=== PATIENT | male | born 1950 | race Caucasian/White ===

== ENCOUNTER 2017-01-31 09:32 | Observation (INO) | payer MEDICARE ==
[~2017-01-31] VITALS: Ht 185.4 cm; Wt 121.6 kg
[2017-01-31] VITALS (9 sets, daily range): BP systolic 130–164; BP diastolic 72–99
[~2017-01-31 09:32] MED LIST: ASPI325T4 PO; FENTANYL PF 100 MCG/2 ML VIAL. IV PRN; HYDROMORPHONE 2 MG/ML VIAL. IV PRN; IV RINGERS,LACTATED 1000ML 1,000 ML IV SCH; LIDOCAINE 1% 1 ML SYRINGE. ID PRN; LISI10TA2 PO; MORPHINE SULFATE 2 MG/ML DISP.SYRIN. IV PRN; ONDANSETRON PF 4 MG/2 ML VIAL. IV PRN; PROCHLORPERAZINE 10 MG/2 ML VIAL. IV PRN; TAMS0.4C97 PO
[2017-01-31] MEDS ORDERED: SEVOFLURANE 31 TO 60 MINUTES. IH ONE (10:29)
[2017-01-31] MEDS ORDERED: FENTANYL PF 100 MCG/2 ML VIAL. ONE (10:29)
[2017-01-31] MEDS ORDERED: PROPOFOL 20 ML IV ONE (10:29)
[2017-01-31] MEDS ORDERED: ONDANSETRON PF 4 MG/2 ML VIAL. ONE (10:29)
[2017-01-31] MEDS ORDERED: DEXAMETHASONE SOD PHOS 20 MG/5 ML VIAL. ONE (10:29)
[2017-01-31] MEDS ORDERED: LIDOCAINE 2% 100 MG/5 ML DISP.SYRIN. ONE (10:29)
[2017-01-31] MEDS ORDERED: PHENYLEPHRINE in 0.9% NACL PF 1 MG/10 ML DISP.SYRIN. IV ONE (11:44)
[2017-01-31] MEDS ORDERED: MAGNESIUM HYDROXIDE 2,400 MG/30 ML ORAL.SUSP. PO PRN (12:30)
[2017-01-31] MEDS ORDERED: MAG HYDROX/ALUMINUM HYD/SIMETH 30 ML ORAL.SUSP PO PRN (12:30)
[2017-01-31] MEDS ORDERED: DIPHENHYDRAMINE HCL 25 MG CAPSULE PO PRN (12:30)
[2017-01-31] MEDS ORDERED: HYDROCODONE/APAP 5/325MG TABLET. PO PRN (12:30)
[2017-01-31] MEDS ORDERED: ONDANSETRON PF 4 MG/2 ML VIAL. IV PRN (12:30)
[2017-01-31] MEDS ORDERED: NALOXONE 0.4 MG/ML VIAL. IV PRN (12:30)
[2017-01-31] MEDS ORDERED: 0.9 % SODIUM CHLORIDE 10 ML DISP.SYRIN. IV PRN (12:30)
[2017-01-31] MEDS ORDERED: ACETAMINOPHEN 325 MG TABLET. PO PRN (12:30)
--- NOTE | 2017-01-31 12:47 | PDOC ---
BRIEF OPERATIVE NOTE Date: Jan 31, 2017 Pre-Op Diagnosis Gross Hematuria, urinary clot retention Post-Op Diagnosis Hemorrhagic prostatitis Procedure Performed Cystoscopy evacuation bladder clots Fuluguration prostate Surgeon Marlen Anesthesia Type: General Specimens Obtained blood clots discarded Findings hemorrhagic prostate, large median lobe bladder full of clots Complications None Additional Remarks tolerated well JEAN-CLAUDE CASH DO Jan 31, 2017 12:47
--- NOTE | 2017-01-31 13:48 | OP ---
DATE OF SURGERY: 01/31/2017 PREOPERATIVE DIAGNOSES: Gross hematuria, urinary clot retention. POSTOPERATIVE DIAGNOSES: Gross hematuria, urinary clot retention, hemorrhagic prostatitis. PROCEDURE: Cystoscopy, evacuation of bladder clots, fulguration of prostate. SURGEON: Jean-Claude Cash D.O. ANESTHESIA: General. INDICATIONS AND JUDGMENT: This is a 66-year-old male who was previously admitted to the hospital with gross hematuria and urinary clot retention. He was catheterized and placed on continuous bladder irrigation. The patient improved, his renal function improved; therefore, he was allowed to go home and brought him back to outpatient surgery today to undergo a cystoscopy evaluation. He continued to have heme colored urine with occasional clots. DESCRIPTION OF PROCEDURE: The patient was preloaded with IV antibiotics. He was taken to the operating room and placed on the operating room table in supine position, given a general anesthetic and then placed in a dorsolithotomy position using Ivncent stirrups since we do not have a cystoscopy table. Rigid cystoscopy was performed with a 21-Serbian cystoscope. The urethra was normal in course and caliber. The prostate was visualized. He has a very large prostate, estimated to be between 40 and 60 grams with visual obstruction. He also has a very large median lobe extending into the bladder, which was hemorrhagic in nature. Scope was advanced into the bladder. The bladder was full of clots. I then removed the cystoscope. A 24-Serbian resectoscope sheath was introduced into the urethra and into the bladder with a Khurram obturator. Following that, the Ellik evacuator was utilized to remove numerous clots from the bladder. Finally, all the clots were removed. I then repeated cystoscopy and examined the bladder with a 30-degree and 70-degree lens. Surprisingly, there was no evidence of bladder tumor. There was no bladder calculi. It was a little difficult to manipulate within the bladder due to this large median lobe that extends into the bladder. The bleeding appeared to be coming from the hemorrhagic blood vessels that were on the surface of this median lobe. The cystoscope was removed. I then replaced the resectoscope sheath into the bladder. An Zappos resectoscope was fitted with a rollerball electrode and I began to cauterize the bleeding vessels on this large median lobe of the prostate, which extended into the bladder. All these bleeding vessels were coagulated. This ____ control all of the bleeding. No other bleeding was identified. Once again, I did not see any sign of a bladder tumor. Once hemostasis was obtained, the resectoscope was then removed. I then placed a 22 Serbian 3-way Olivares catheter into the urethra and into the bladder. The 20 mL balloon was filled and this was irrigated. The return was clear. Therefore, I connected a 3-way Olivares catheter to continuous bladder irrigation using saline. The instruments were removed. The patient tolerated the procedure well. He was sent to recovery room in satisfactory condition. JEAN-CLAUDE CASH DO DR: Abigail JOB#: [id number] / [id number]
[2017-01-31] MEDS ORDERED: LEVOFLOXACIN 500 MG TABLET PO SCH (14:00)
[2017-01-31] MEDS: IV NORMAL SALINE 1000ML BAG 1,000 ML IV SCH ×2 (14:32→23:30)
--- NOTE | 2017-01-31 15:29 | PDOC2 ---
CONSULT Date of Consult Date of Consult DATE: 01/31/17 TIME: 15:23 Reason for Consult Reason for Consult: medical mx Referring Physician Referring Physician: jessica Identification/Chief Complaint Chief Complaint blood in urine, dribbling urine History of Present Illness Reason for Visit: Very pleasant 66 y.o male with HTN but has not been taking for financial reasons (only on 3 meds at home), - lisinopril, ASA 81 and flomax. 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 Pt had bloody urine, went for cysto today with cautery and prostate scrapings etc. Urine is clearing up, pt pleased with his hospital course BP running on high side, 160s systolic - claims that may be his usual, though not ideal at bedside, no labs yet But hemodynamically stable Past Medical History Cardiovascular: HTN Past Surgical History Past Surgical History: Tonsillectomy Family History Family History: No Significant, Hypertension Social History No ALCOHOL: none Drugs: Marijuana Lives: with Family Domestic Violence: Neg Current Problem List Problem List Problems Medical Problems: (1) Hematuria Status: Acute Current Medications Current Medications Current Medications Ondansetron HCl (Zofran) 4 mg PRN Q6HRS PRN IV NAUSEA/VOMITING; Start 01/31/17 at 07:00; Stop 02/01/17 at 06:59 Fentanyl Citrate (Fentanyl 2ml Vial) 25 mcg PRN Q5MIN PRN IV MILD PAIN; Start 01/31/17 at 07:00; Stop 02/01/17 at 06:59 Fentanyl Citrate (Fentanyl 2ml Vial) 50 mcg PRN Q5MIN PRN IV MODERATE PAIN; Start 01/31/17 at 07:00; Stop 02/01/17 at 06:59 Morphine Sulfate 1 mg 1 mg PRN Q10MIN PRN IV SEVERE PAIN; Start 01/31/17 at 07: 00; Stop 02/01/17 at 06:59 Lactated Ringer's (Iv Lactated Ringers) 1,000 ml @ 30 mls/hr Q24H IV ; Start at 07:00; Stop 01/31/17 at 18:59 Lidocaine HCl 2 ml PRN 1X PRN ID PRIOR TO IV START; Start 01/31/17 at 07:00; Stop 02/01/17 at 06:59 Hydromorphone HCl (Dilaudid) 0.5 mg PRN Q10MIN PRN IV SEV PAIN, Second choice; Start 01/31/17 at 07:00; Stop 02/01/17 at 06:59 Prochlorperazine Edisylate 5 mg 5 mg PACU PRN PRN IV NAUSEA, MRX1; Start at 07:00; Stop 02/01/17 at 06:59 Levofloxacin/ Dextrose (LEVAQUIN 500mg PREMIX) 100 ml @ 100 mls/hr 1X PREOP PRN IV PRIOR TO PROCEDURE Last administered on 01/31/17t 11:25; Start 01/31/17 at 06:00; Stop 01/31/17 at 18:00 Fentanyl Citrate (Fentanyl 2ml Vial) 100 mcg STK-MED ONCE .ROUTE ; Start at 10:29; Stop 01/31/17 at 10:30; Status DC Sevoflurane 30 ml 30 ml STK-MED ONCE IH ; Start 01/31/17 at 10:29; Stop at 10:30; Status DC Propofol (Diprivan) 20 ml @ As Directed STK-MED ONCE IV ; Start 01/31/17 at 10: 29; Stop 01/31/17 at 10:30; Status DC Lidocaine HCl 100 mg STK-MED ONCE .ROUTE ; Start 01/31/17 at 10:29; Stop at 10:30; Status DC Ondansetron HCl (Zofran) 4 mg STK-MED ONCE .ROUTE ; Start 01/31/17 at 10:29; Stop 01/31/17 at 10:30; Status DC Dexamethasone Sodium Phosphate (Decadron) 20 mg STK-MED ONCE .ROUTE ; Start at 10:29; Stop 01/31/17 at 10:30; Status DC Phenylephrine HCl 1 mg STK-MED ONCE IV ; Start 01/31/17 at 11:44; Stop 01/31/17 at 11:45; Status DC Al Hydroxide/Mg Hydroxide (Mylanta Plus Xs) 30 ml PRN Q3HRS PRN PO HEARTBURN / GAS; Start 01/31/17 at 12:30 Diphenhydramine HCl (Benadryl) 25 mg PRN Q6HRS PRN PO ITCHING; Start 01/31/17 at 12:30 Naloxone HCl (Narcan) 0.1 mg PRN Q2MIN PRN IV SEE COMMENTS; Start 01/31/17 at 12:30 Sodium Chloride 3 ml 3 ml QSHIFT PRN IV AFTER MEDS AND BLOOD DRAWS; Start 01/31 at 12:30 Sodium Chloride (Iv Sodium Chloride 0.9% 1000ml Bag) 1,000 ml @ 100 mls/hr Q10H IV Last administered on 01/31/17t 14:32; Start 01/31/17 at 13:30 Acetaminophen/ Hydrocodone Bitart (Lortab 5/325) 1 tab PRN Q4HRS PRN PO MILD PAIN; Start 01/31/17 at 12:30 Acetaminophen (Tylenol) 650 mg PRN Q6HRS PRN PO MILD PAIN / TEMP; Start at 12:30 Ondansetron HCl (Zofran) 4 mg PRN Q6HRS PRN IV NAUESA, 1ST CHOICE; Start at 12:30 Senna/Docusate Sodium (Senna Plus) 1 tab BID PO ; Start 01/31/17 at 21:00 Magnesium Hydroxide (Milk Of Magnesia) 2,400 mg PRN Q12HR PRN PO CONSTIPATION; Start 01/31/17 at 12:30 Levofloxacin (Levaquin) 500 mg DAILY06 PO ; Start 01/31/17 at 14:00; Stop at 14:00; Status DC Lisinopril (Prinivil) 10 mg DAILY PO ; Start 02/01/17 at 09:00 Tamsulosin HCl (Flomax) 0.4 mg QHS PO ; Start 01/31/17 at 21:00 Levofloxacin (Levaquin) 500 mg DAILY06 PO ; Start 02/01/17 at 06:00 Labetalol HCl (Normodyne) 10 mg PRN Q2HR PRN IVP HYPERTENSION, SEE COMMENTS; Start 01/31/17 at 15:15 Active Scripts Active Lisinopril 10 Mg Tablet 1 Tab PO DAILY Flomax (Tamsulosin Hcl) 0.4 Mg Cap.er.24h 0.4 Mg PO QHS Reported Aspirin 325 Mg Tablet 1 Tab PO PRN 1X PRN Allergies Allergies: Coded Allergies: Penicillins (Verified Allergy, Intermediate, unknown, 01/31/17) Sulfa (Sulfonamide Antibiotics) (Verified Allergy, Intermediate, Eyes & Chest area problem and hard to breath, 01/31/17) ROS General: No: Appetite, Chills, Fatigue, Malaise, Night Sweats, Other PSYCHOLOGICAL ROS: No: Anxiety, Behavioral Disorder, Concentration difficultie , Decreased libido, Depression, Disorientation, Hallucinations, Hostility, Irritablity, Memory difficulties, Mood Swings, Obsessive thoughts, Other, Physical abuse, Sexual abuse, Sleep disturbances, Suicidal ideation Eyes: No Blurry vision, No Decreased vision, No Double vision, No Dry eyes, No Excessive tearing, No Eye Pain, No Itchy Eyes, No Loss of vision, No Other, No Photophobia, No Scotomata, No Uses contacts, No Uses glasses HEENT: No: Epistaxis, Heacaches, Hearing change, Nasal congestion, Nasal discharge, Oral lesions, Other, Sinus pain, Sneezing, Snoring, Sore Throat, Tinnitus, Vertigo, Visual Changes, Vocal changes ALLERGY AND IMMUNOLOGY: No: Hives, Insect Bite Sensitivity, Itchy/Watery Eyes, Nasal Congestion, Other, Post Nasal Drip, Seasonal Allergies Hematological and Lymphatic: No: Bleeding Problems, Blood Clots, Blood Transfusions, Brusing, Night Sweats, Other, Pallor, Swollen Lymph Nodes ENDOCRINE: No: Breast Changes, Galactorrhea, Hair Pattern Changes, Hot Flashes , Malaise/lethargy, Mood Swings, Other, Palpitations, Polydipsia/polyuria, Skin Changes, Temperature Intolerance, Unexpected Weight Changes Breast: No New/Changing Breast Lumps, No Nipple changes, No Nipple discharge, No Other Respiratory: No: Cough, Hemoptysis, Orthopnea, Other, Pleuritic Pain, SOB with excertion, Shortness of breath, Sputum Changes, Stridor, Tachypnea, Wheezing Cardiovascular: No Chest Pain, No Edema, No Lt Headedness, No Orthopnea, No Other, No Palpitations, No Paroxysmal Noc. Dyspnea Gastrointestinal: No Abdominal Pain, No Constipation, No Diarrhea, No Hematochezia, No Melena, No Nausea, No Other, No Vomiting Genitourinary: YES Hematuria, YES Other (dribbling), YES Retention, YES Urgency Neurological: No Behavorial Changes, No Bowel/Bladder ControlChng, No Confusion , No Dizziness, No Gait Disturbance, No Headaches, No Impaired Coord/balance, No Memory Loss, No Numbness/Tingling, No Other, No Seizures, No Speech Problems , No Tremors, No Visual Changes, No Weakness Skin: No Acne, No Dry Skin, No Eczema, No Hair Changes, No Lumps, No Mole Changes, No Mottling, No Nail Changes, No Other, No Pruritus, No Rash, No Skin Lesion Changes Physical Exam General: Alert, Oriented X3, Cooperative, No acute distress HEENT: Atraumatic, PERRLA, Mucous membr. moist/pink Lungs: Clear to auscultation Heart: Regular rate, Normal S1, Normal S2, No murmurs Abdomen: Normal bowel sounds, Soft, No tenderness, No hepatosplenomegaly, No masses Extremities: No clubbing, No cyanosis, No edema, Normal pulses, No tenderness/ swelling Neuro: Normal gait, Normal speech, Normal tone, Sensation intact, Reflexes 2+ Psych/Mental Status: Mental status NL, Mood NL Vitals VITALS Vital Signs Date Time Temp Pulse Resp B/P Pulse Ox O2 Delivery O2 Flow Rate FiO2 01/31/17 15:02 Room Air 01/31/17 14:54 98.8 89 161/83 98.8 01/31/17 13:45 18 92 01/31/17 11:26 10 Assessment/Plan Assessment/Plan 1. Hemorrhagic prostatitis s/p Cystoscopy evacuation bladder clots and Fuluguration prostate 2. HTN, uncontrolled PLAN: Add labetolol prn REsume Lisinopril HOld ASA cont flomax On bladder irriagtion Dw pt, and RN gregg Thanks for the consult! TUCKER CARIAS MD Jan 31, 2017 15:28
[2017-01-31] MEDS: SENNOSIDES/DOCUSATE 8.6/50MG TABLET. PO SCH (20:37)
[2017-01-31] MEDS: TAMSULOSIN 0.4 MG CAP.ER.24H. PO SCH (20:37)
[2017-02-01] MEDS: LEVOFLOXACIN 500 MG TABLET PO SCH (05:37)
[2017-02-01 06:28] LABS: BASO % 0 % (0-3); EOS % 1 % (0-3); HEMATOCRIT 30.1 % (39.0-53.0); HEMOGLOBIN 9.8 g/dL (13.0-17.5); LYMPH # 2.1 x10^3/uL (1.0-4.8); LYMPH % 20 % (24-48); MEAN CORPUSCULAR HEMOGLOBIN 28 pg (25-35); MEAN CORPUSCULAR HGB CONC 33 g/dL (31-37); MEAN CORPUSCULAR VOLUME 87 fL (79-100); MONO % 7 % (0-9); NEUT % 72 % (31-73); PLATELET COUNT 276 x10^3/uL (140-400); RED BLOOD COUNT 3.47 x10^6/uL (4.30-5.70); WHITE BLOOD COUNT 10.4 x10^3/uL (4.0-11.0)
[2017-02-01 06:43] LABS: GFR 74.5; POTASSIUM 3.2 mmol/L (3.5-5.1)
[2017-02-01 07:00] VITALS: BP 167/77
[2017-02-01] MEDS: IV NORMAL SALINE 1000ML BAG 1,000 ML IV SCH ×3 (08:13→18:12)
--- NOTE | 2017-02-01 08:17 | PDOC ---
Provider Note Provider Note Urology POD#1 Cystoscopy, evacuation bladder clots Fulguration hemorrhagic prostate Urine clear on CBI K+ low Plan: D/C CBI, keep haddad catheter in today, remove tomorrow Rx Flomax and Proscar 5mg daily JEAN-CLAUDE CASH DO Feb 01, 2017 08:17
[2017-02-01] MEDS: SENNOSIDES/DOCUSATE 8.6/50MG TABLET. PO SCH ×2 (08:25→21:36)
[2017-02-01] MEDS: LISINOPRIL 10 MG TABLET PO SCH (08:25)
[2017-02-01 11:00] VITALS: BP 159/77
--- NOTE | 2017-02-01 12:24 | PDOC ---
PROGRESS NOTES Chief Complaint Chief Complaint 1. Hemorrhagic prostatitis s/p Cystoscopy evacuation bladder clots 2. HTN, poor control 3. obesity 4. BPH History of Present Illness History of Present Illness feels better CBI seems to be clearing OOB to chair, eating no complaint Vitals Vitals Vital Signs Date Time Temp Pulse Resp B/P Pulse Ox O2 Delivery O2 Flow Rate FiO2 02/01/17 08:25 80 167/77 02/01/17 07:00 99.1 24 96 Room Air 99.1 01/31/17 11:26 10 Physical Exam General: Alert, Oriented X3, Cooperative, No acute distress Heart: Regular rate, Normal S1, Normal S2, No murmurs Lungs: Clear Abdomen: Normal bowel sounds, Soft, No tenderness, No hepatosplenomegaly, No masses Extremities: No clubbing, No cyanosis, No edema, Normal pulses, No tenderness/ swelling Labs LABS Laboratory Tests Test 02/01/17 05:55 White Blood Count 10.4x10^3/uL (4.0-11.0) Red Blood Count 3.47x10^6/uL (4.30-5.70) Hemoglobin 9.8g/dL (13.0-17.5) Hematocrit 30.1% (39.0-53.0) Mean Corpuscular Volume 87fL (79-100) Mean Corpuscular Hemoglobin 28pg (25-35) Mean Corpuscular Hemoglobin Concent 33g/dL (31-37) Red Cell Distribution Width 14.0% (11.5-14.5) Platelet Count 276x10^3/uL (140-400) Neutrophils (%) (Auto) 72% (31-73) Lymphocytes (%) (Auto) 20% (24-48) Monocytes (%) (Auto) 7% (0-9) Eosinophils (%) (Auto) 1% (0-3) Basophils (%) (Auto) 0% (0-3) Neutrophils # (Auto) 7.5x10^3uL (1.8-7.7) Lymphocytes # (Auto) 2.1x10^3/uL (1.0-4.8) Monocytes # (Auto) 0.7x10^3/uL (0.0-1.1) Eosinophils # (Auto) 0.1x10^3/uL (0.0-0.7) Basophils # (Auto) 0.0x10^3/uL (0.0-0.2) Sodium Level 144mmol/L (136-145) Potassium Level 3.2mmol/L (3.5-5.1) Chloride Level 105mmol/L (98-107) Carbon Dioxide Level 30mmol/L (21-32) Anion Gap 9 (6-14) Blood Urea Nitrogen 10mg/dL (8-26) Creatinine 1.0mg/dL (0.7-1.3) Estimated GFR (Cockcroft-Gault) 74.5 Glucose Level 98mg/dL (70-99) Calcium Level 8.0mg/dL (8.5-10.1) Review of Systems Review of Systems no n.v.d. Assessment and Plan Assessmemt and Plan Problems Medical Problems: (1) Hematuria Status: Acute Problems: Comment Review of Relevant I have reviewed the following items allison (where applicable) has been applied. Labs Laboratory Tests Test 02/01/17 05:55 White Blood Count 10.4x10^3/uL (4.0-11.0) Red Blood Count 3.47x10^6/uL (4.30-5.70) Hemoglobin 9.8g/dL (13.0-17.5) Hematocrit 30.1% (39.0-53.0) Mean Corpuscular Volume 87fL (79-100) Mean Corpuscular Hemoglobin 28pg (25-35) Mean Corpuscular Hemoglobin Concent 33g/dL (31-37) Red Cell Distribution Width 14.0% (11.5-14.5) Platelet Count 276x10^3/uL (140-400) Neutrophils (%) (Auto) 72% (31-73) Lymphocytes (%) (Auto) 20% (24-48) Monocytes (%) (Auto) 7% (0-9) Eosinophils (%) (Auto) 1% (0-3) Basophils (%) (Auto) 0% (0-3) Neutrophils # (Auto) 7.5x10^3uL (1.8-7.7) Lymphocytes # (Auto) 2.1x10^3/uL (1.0-4.8) Monocytes # (Auto) 0.7x10^3/uL (0.0-1.1) Eosinophils # (Auto) 0.1x10^3/uL (0.0-0.7) Basophils # (Auto) 0.0x10^3/uL (0.0-0.2) Sodium Level 144mmol/L (136-145) Potassium Level 3.2mmol/L (3.5-5.1) Chloride Level 105mmol/L (98-107) Carbon Dioxide Level 30mmol/L (21-32) Anion Gap 9 (6-14) Blood Urea Nitrogen 10mg/dL (8-26) Creatinine 1.0mg/dL (0.7-1.3) Estimated GFR (Cockcroft-Gault) 74.5 Glucose Level 98mg/dL (70-99) Calcium Level 8.0mg/dL (8.5-10.1) Laboratory Tests Test 02/01/17 05:55 White Blood Count 10.4x10^3/uL (4.0-11.0) Red Blood Count 3.47x10^6/uL (4.30-5.70) Hemoglobin 9.8g/dL (13.0-17.5) Hematocrit 30.1% (39.0-53.0) Mean Corpuscular Volume 87fL (79-100) Mean Corpuscular Hemoglobin 28pg (25-35) Mean Corpuscular Hemoglobin Concent 33g/dL (31-37) Red Cell Distribution Width 14.0% (11.5-14.5) Platelet Count 276x10^3/uL (140-400) Neutrophils (%) (Auto) 72% (31-73) Lymphocytes (%) (Auto) 20% (24-48) Monocytes (%) (Auto) 7% (0-9) Eosinophils (%) (Auto) 1% (0-3) Basophils (%) (Auto) 0% (0-3) Neutrophils # (Auto) 7.5x10^3uL (1.8-7.7) Lymphocytes # (Auto) 2.1x10^3/uL (1.0-4.8) Monocytes # (Auto) 0.7x10^3/uL (0.0-1.1) Eosinophils # (Auto) 0.1x10^3/uL (0.0-0.7) Basophils # (Auto) 0.0x10^3/uL (0.0-0.2) Sodium Level 144mmol/L (136-145) Potassium Level 3.2mmol/L (3.5-5.1) Chloride Level 105mmol/L (98-107) Carbon Dioxide Level 30mmol/L (21-32) Anion Gap 9 (6-14) Blood Urea Nitrogen 10mg/dL (8-26) Creatinine 1.0mg/dL (0.7-1.3) Estimated GFR (Cockcroft-Gault) 74.5 Glucose Level 98mg/dL (70-99) Calcium Level 8.0mg/dL (8.5-10.1) Medications Current Medications Ondansetron HCl (Zofran) 4 mg PRN Q6HRS PRN IV NAUSEA/VOMITING; Start 01/31/17 at 07:00; Stop 02/01/17 at 06:59; Status DC Fentanyl Citrate (Fentanyl 2ml Vial) 25 mcg PRN Q5MIN PRN IV MILD PAIN; Start 01/31/17 at 07:00; Stop 02/01/17 at 06:59; Status DC Fentanyl Citrate (Fentanyl 2ml Vial) 50 mcg PRN Q5MIN PRN IV MODERATE PAIN; Start 01/31/17 at 07:00; Stop 02/01/17 at 06:59; Status DC Morphine Sulfate 1 mg 1 mg PRN Q10MIN PRN IV SEVERE PAIN; Start 01/31/17 at 07: 00; Stop 02/01/17 at 06:59; Status DC Lactated Ringer's (Iv Lactated Ringers) 1,000 ml @ 30 mls/hr Q24H IV ; Start at 07:00; Stop 01/31/17 at 18:59; Status DC Lidocaine HCl 2 ml PRN 1X PRN ID PRIOR TO IV START; Start 01/31/17 at 07:00; Stop 02/01/17 at 06:59; Status DC Hydromorphone HCl (Dilaudid) 0.5 mg PRN Q10MIN PRN IV SEV PAIN, Second choice; Start 01/31/17 at 07:00; Stop 02/01/17 at 06:59; Status DC Prochlorperazine Edisylate 5 mg 5 mg PACU PRN PRN IV NAUSEA, MRX1; Start at 07:00; Stop 02/01/17 at 06:59; Status DC Levofloxacin/ Dextrose (LEVAQUIN 500mg PREMIX) 100 ml @ 100 mls/hr 1X PREOP PRN IV PRIOR TO PROCEDURE Last administered on 01/31/17t 11:25; Start 01/31/17 at 06:00; Stop 01/31/17 at 18:00; Status DC Fentanyl Citrate (Fentanyl 2ml Vial) 100 mcg STK-MED ONCE .ROUTE ; Start at 10:29; Stop 01/31/17 at 10:30; Status DC Sevoflurane 30 ml 30 ml STK-MED ONCE IH ; Start 01/31/17 at 10:29; Stop at 10:30; Status DC Propofol (Diprivan) 20 ml @ As Directed STK-MED ONCE IV ; Start 01/31/17 at 10: 29; Stop 01/31/17 at 10:30; Status DC Lidocaine HCl 100 mg STK-MED ONCE .ROUTE ; Start 01/31/17 at 10:29; Stop at 10:30; Status DC Ondansetron HCl (Zofran) 4 mg STK-MED ONCE .ROUTE ; Start 01/31/17 at 10:29; Stop 01/31/17 at 10:30; Status DC Dexamethasone Sodium Phosphate (Decadron) 20 mg STK-MED ONCE .ROUTE ; Start at 10:29; Stop 01/31/17 at 10:30; Status DC Phenylephrine HCl 1 mg STK-MED ONCE IV ; Start 01/31/17 at 11:44; Stop 01/31/17 at 11:45; Status DC Al Hydroxide/Mg Hydroxide (Mylanta Plus Xs) 30 ml PRN Q3HRS PRN PO HEARTBURN / GAS; Start 01/31/17 at 12:30 Diphenhydramine HCl (Benadryl) 25 mg PRN Q6HRS PRN PO ITCHING; Start 01/31/17 at 12:30 Naloxone HCl (Narcan) 0.1 mg PRN Q2MIN PRN IV SEE COMMENTS; Start 01/31/17 at 12:30 Sodium Chloride 3 ml 3 ml QSHIFT PRN IV AFTER MEDS AND BLOOD DRAWS; Start 01/31 at 12:30 Sodium Chloride (Iv Sodium Chloride 0.9% 1000ml Bag) 1,000 ml @ 100 mls/hr Q10H IV Last administered on 02/01/17 08:13; Start 01/31/17 at 13:30 Acetaminophen/ Hydrocodone Bitart (Lortab 5/325) 1 tab PRN Q4HRS PRN PO MILD PAIN; Start 01/31/17 at 12:30 Acetaminophen (Tylenol) 650 mg PRN Q6HRS PRN PO MILD PAIN / TEMP; Start at 12:30 Ondansetron HCl (Zofran) 4 mg PRN Q6HRS PRN IV NAUESA, 1ST CHOICE; Start at 12:30 Senna/Docusate Sodium (Senna Plus) 1 tab BID PO Last administered on 02/01/17 08:25; Start 01/31/17 at 21:00 Magnesium Hydroxide (Milk Of Magnesia) 2,400 mg PRN Q12HR PRN PO CONSTIPATION; Start 01/31/17 at 12:30 Levofloxacin (Levaquin) 500 mg DAILY06 PO ; Start 01/31/17 at 14:00; Stop at 14:00; Status DC Lisinopril (Prinivil) 10 mg DAILY PO Last administered on 02/01/17 08:25; Start 02/01/17 at 09:00 Tamsulosin HCl (Flomax) 0.4 mg QHS PO Last administered on 01/31/17 20:37; Start 01/31/17 at 21:00 Levofloxacin (Levaquin) 500 mg DAILY06 PO Last administered on 02/01/17 05:37 ; Start 02/01/17 at 06:00 Labetalol HCl (Normodyne) 10 mg PRN Q2HR PRN IVP HYPERTENSION, SEE COMMENTS; Start 01/31/17 at 15:15 Active Scripts Active Lisinopril 10 Mg Tablet 1 Tab PO DAILY Flomax (Tamsulosin Hcl) 0.4 Mg Cap.er.24h 0.4 Mg PO QHS Reported Aspirin 325 Mg Tablet 1 Tab PO PRN 1X PRN Vitals/I & O Vital Sign - Last 24 Hours 01/31/17 01/31/17 01/31/17 01/31/17 12:41 12:56 13:11 13:45 Temp 97.6 98.8 97.6 98.8 Pulse 82 94 92 89 Resp 18 14 14 18 B/P 134/68 153/80 149/74 161/83 Pulse Ox 98 95 97 92 O2 Delivery Room Air Room Air Room Air Room Air 01/31/17 01/31/17 01/31/17 01/31/17 14:00 14:15 14:45 14:54 Temp 98.8 98.8 Pulse 91 100 101 89 B/P 156/74 164/78 130/99 161/83 O2 Delivery Room Air 01/31/17 01/31/17 01/31/17 01/31/17 15:02 15:15 15:45 19:00 Temp 98.2 98.2 Pulse 97 90 86 Resp 20 B/P 150/74 148/72 145/80 Pulse Ox 97 O2 Delivery Room Air Room Air 01/31/17 01/31/17 02/01/17 02/01/17 20:00 23:00 07:00 08:25 Temp 98.1 99.1 98.1 99.1 Pulse 96 80 80 Resp 20 24 B/P 154/74 167/77 167/77 Pulse Ox 95 96 O2 Delivery Room Air Room Air Room Air Intake and Output 01/31/17 01/31/17 02/01/17 14:59 22:59 06:59 Intake Total 1500 ml 5475 ml Output Total 5100 ml 9800 ml 9650 ml Balance -3600 ml -9800 ml -4175 ml ESTELA VELARDE MD Feb 01, 2017 12:24
[2017-02-01 15:00] VITALS: BP 170/74
[2017-02-01 19:00] VITALS: BP 183/84
[2017-02-01] MEDS: TAMSULOSIN 0.4 MG CAP.ER.24H. PO SCH (21:36)
[2017-02-01 22:36] VITALS: BP 175/92
[2017-02-02 03:01] VITALS: BP 173/85
[2017-02-02] MEDS: LABETALOL 20 MG/4 ML DISP.SYRIN. IVP PRN ×2 (03:21→20:17)
[2017-02-02] MEDS: IV NORMAL SALINE 1000ML BAG 1,000 ML IV SCH ×2 (04:30→14:30)
[2017-02-02] MEDS: LEVOFLOXACIN 500 MG TABLET PO SCH (06:07)
[2017-02-02 07:00] VITALS: BP_SYST 138; BP_SYST 160; BP_DIAS 113; BP_DIAS 57
[2017-02-02] MEDS: SENNOSIDES/DOCUSATE 8.6/50MG TABLET. PO SCH ×2 (09:53→20:17)
[2017-02-02] MEDS: LISINOPRIL 10 MG TABLET PO SCH (09:54)
[2017-02-02 11:00] VITALS: BP 188/92
--- NOTE | 2017-02-02 12:16 | PDOC ---
PROGRESS NOTES Chief Complaint Chief Complaint 1. Hemorrhagic prostatitis s/p Cystoscopy evacuation bladder clots 2. HTN, poor control 3. obesity 4. BPH History of Present Illness History of Present Illness feels well still eating OK, large BM yesterday no complaint Vitals Vitals Vital Signs Date Time Temp Pulse Resp B/P Pulse Ox O2 Delivery O2 Flow Rate FiO2 02/02/17 11:00 98.4 87 16 188/92 95 Room Air 98.4 Physical Exam General: Alert, Oriented X3, Cooperative, No acute distress Heart: Regular rate, Normal S1, Normal S2, No murmurs Lungs: Clear Abdomen: Normal bowel sounds, Soft, No tenderness, No hepatosplenomegaly, No masses Extremities: No clubbing, No cyanosis, No edema, Normal pulses, No tenderness/ swelling Review of Systems Review of Systems no new complaint on CBI, a little more blood in the bag today, no n.v or d Assessment and Plan Assessmemt and Plan Problems Medical Problems: (1) Hematuria Status: Acute Problems: Comment Review of Relevant I have reviewed the following items allison (where applicable) has been applied. Labs Laboratory Tests Test 02/01/17 05:55 White Blood Count 10.4x10^3/uL (4.0-11.0) Red Blood Count 3.47x10^6/uL (4.30-5.70) Hemoglobin 9.8g/dL (13.0-17.5) Hematocrit 30.1% (39.0-53.0) Mean Corpuscular Volume 87fL (79-100) Mean Corpuscular Hemoglobin 28pg (25-35) Mean Corpuscular Hemoglobin Concent 33g/dL (31-37) Red Cell Distribution Width 14.0% (11.5-14.5) Platelet Count 276x10^3/uL (140-400) Neutrophils (%) (Auto) 72% (31-73) Lymphocytes (%) (Auto) 20% (24-48) Monocytes (%) (Auto) 7% (0-9) Eosinophils (%) (Auto) 1% (0-3) Basophils (%) (Auto) 0% (0-3) Neutrophils # (Auto) 7.5x10^3uL (1.8-7.7) Lymphocytes # (Auto) 2.1x10^3/uL (1.0-4.8) Monocytes # (Auto) 0.7x10^3/uL (0.0-1.1) Eosinophils # (Auto) 0.1x10^3/uL (0.0-0.7) Basophils # (Auto) 0.0x10^3/uL (0.0-0.2) Sodium Level 144mmol/L (136-145) Potassium Level 3.2mmol/L (3.5-5.1) Chloride Level 105mmol/L (98-107) Carbon Dioxide Level 30mmol/L (21-32) Anion Gap 9 (6-14) Blood Urea Nitrogen 10mg/dL (8-26) Creatinine 1.0mg/dL (0.7-1.3) Estimated GFR (Cockcroft-Gault) 74.5 Glucose Level 98mg/dL (70-99) Calcium Level 8.0mg/dL (8.5-10.1) Medications Current Medications Ondansetron HCl (Zofran) 4 mg PRN Q6HRS PRN IV NAUSEA/VOMITING; Start 01/31/17 at 07:00; Stop 02/01/17 at 06:59; Status DC Fentanyl Citrate (Fentanyl 2ml Vial) 25 mcg PRN Q5MIN PRN IV MILD PAIN; Start 01/31/17 at 07:00; Stop 02/01/17 at 06:59; Status DC Fentanyl Citrate (Fentanyl 2ml Vial) 50 mcg PRN Q5MIN PRN IV MODERATE PAIN; Start 01/31/17 at 07:00; Stop 02/01/17 at 06:59; Status DC Morphine Sulfate 1 mg 1 mg PRN Q10MIN PRN IV SEVERE PAIN; Start 01/31/17 at 07: 00; Stop 02/01/17 at 06:59; Status DC Lactated Ringer's (Iv Lactated Ringers) 1,000 ml @ 30 mls/hr Q24H IV ; Start at 07:00; Stop 01/31/17 at 18:59; Status DC Lidocaine HCl 2 ml PRN 1X PRN ID PRIOR TO IV START; Start 01/31/17 at 07:00; Stop 02/01/17 at 06:59; Status DC Hydromorphone HCl (Dilaudid) 0.5 mg PRN Q10MIN PRN IV SEV PAIN, Second choice; Start 01/31/17 at 07:00; Stop 02/01/17 at 06:59; Status DC Prochlorperazine Edisylate 5 mg 5 mg PACU PRN PRN IV NAUSEA, MRX1; Start at 07:00; Stop 02/01/17 at 06:59; Status DC Levofloxacin/ Dextrose (LEVAQUIN 500mg PREMIX) 100 ml @ 100 mls/hr 1X PREOP PRN IV PRIOR TO PROCEDURE Last administered on 01/31/17t 11:25; Start 01/31/17 at 06:00; Stop 01/31/17 at 18:00; Status DC Fentanyl Citrate (Fentanyl 2ml Vial) 100 mcg STK-MED ONCE .ROUTE ; Start at 10:29; Stop 01/31/17 at 10:30; Status DC Sevoflurane 30 ml 30 ml STK-MED ONCE IH ; Start 01/31/17 at 10:29; Stop at 10:30; Status DC Propofol (Diprivan) 20 ml @ As Directed STK-MED ONCE IV ; Start 01/31/17 at 10: 29; Stop 01/31/17 at 10:30; Status DC Lidocaine HCl 100 mg STK-MED ONCE .ROUTE ; Start 01/31/17 at 10:29; Stop at 10:30; Status DC Ondansetron HCl (Zofran) 4 mg STK-MED ONCE .ROUTE ; Start 01/31/17 at 10:29; Stop 01/31/17 at 10:30; Status DC Dexamethasone Sodium Phosphate (Decadron) 20 mg STK-MED ONCE .ROUTE ; Start at 10:29; Stop 01/31/17 at 10:30; Status DC Phenylephrine HCl 1 mg STK-MED ONCE IV ; Start 01/31/17 at 11:44; Stop 01/31/17 at 11:45; Status DC Al Hydroxide/Mg Hydroxide (Mylanta Plus Xs) 30 ml PRN Q3HRS PRN PO HEARTBURN / GAS; Start 01/31/17 at 12:30 Diphenhydramine HCl (Benadryl) 25 mg PRN Q6HRS PRN PO ITCHING; Start 01/31/17 at 12:30 Naloxone HCl (Narcan) 0.1 mg PRN Q2MIN PRN IV SEE COMMENTS; Start 01/31/17 at 12:30 Sodium Chloride 3 ml 3 ml QSHIFT PRN IV AFTER MEDS AND BLOOD DRAWS; Start 01/31 at 12:30 Sodium Chloride (Iv Sodium Chloride 0.9% 1000ml Bag) 1,000 ml @ 100 mls/hr Q10H IV Last administered on 02/02/17 04:30; Start 01/31/17 at 13:30 Acetaminophen/ Hydrocodone Bitart (Lortab 5/325) 1 tab PRN Q4HRS PRN PO MILD PAIN; Start 01/31/17 at 12:30 Acetaminophen (Tylenol) 650 mg PRN Q6HRS PRN PO MILD PAIN / TEMP; Start at 12:30 Ondansetron HCl (Zofran) 4 mg PRN Q6HRS PRN IV NAUESA, 1ST CHOICE; Start at 12:30 Senna/Docusate Sodium (Senna Plus) 1 tab BID PO Last administered on 02/02/17 09:53; Start 01/31/17 at 21:00 Magnesium Hydroxide (Milk Of Magnesia) 2,400 mg PRN Q12HR PRN PO CONSTIPATION; Start 01/31/17 at 12:30 Levofloxacin (Levaquin) 500 mg DAILY06 PO ; Start 01/31/17 at 14:00; Stop at 14:00; Status DC Lisinopril (Prinivil) 10 mg DAILY PO Last administered on 02/02/17 09:54; Start 02/01/17 at 09:00 Tamsulosin HCl (Flomax) 0.4 mg QHS PO Last administered on 02/01/17 21:36; Start 01/31/17 at 21:00 Levofloxacin (Levaquin) 500 mg DAILY06 PO Last administered on 02/02/17 06:07 ; Start 02/01/17 at 06:00 Labetalol HCl (Normodyne) 10 mg PRN Q2HR PRN IVP HYPERTENSION, SEE COMMENTS Last administered on 02/02/17 03:21; Start 01/31/17 at 15:15 Active Scripts Active Lisinopril 10 Mg Tablet 1 Tab PO DAILY Flomax (Tamsulosin Hcl) 0.4 Mg Cap.er.24h 0.4 Mg PO QHS Reported Aspirin 325 Mg Tablet 1 Tab PO PRN 1X PRN Vitals/I & O Vital Sign - Last 24 Hours 02/01/17 02/01/17 02/01/17 02/02/17 15:00 19:00 22:36 03:01 Temp 98.4 98.3 97.9 98.3 98.4 98.3 97.9 98.3 Pulse 97 97 98 86 Resp 18 B/P 170/74 183/84 175/92 173/85 Pulse Ox 94 97 95 93 O2 Delivery Nasal Cannula Room Air Room Air Room Air 02/02/17 02/02/17 02/02/17 02/02/17 03:21 07:00 07:59 09:54 Temp 98.1 98.1 Pulse 86 77 77 Resp 16 B/P 173/85 160/113 160/113 Pulse Ox 98 O2 Delivery Room Air 02/02/17 11:00 Temp 98.4 98.4 Pulse 87 Resp 16 B/P 188/92 Pulse Ox 95 O2 Delivery Room Air Intake and Output 02/01/17 02/01/17 02/02/17 15:00 23:00 07:00 Intake Total 560 ml 1350 ml 5300 ml Output Total 04492 ml 9000 ml Balance 560 ml -60186 ml -3700 ml ESTELA VELARDE MD Feb 02, 2017 12:16
[2017-02-02] MEDS: AMLODIPINE BESYLATE 2.5 MG TABLET. PO SCH (12:52)
[2017-02-02] MEDS ORDERED: POTASSIUM CHLORIDE 20 MEQ TABLET.ER. PO ONE (13:00)
--- NOTE | 2017-02-02 14:53 | PDOC ---
Provider Note Provider Note Urine color improved Plan: -d/c haddad catheter in AM -home on Cipro, Flomax, and Proscar -f/u with family doctor. JEAN-CLAUDE CASH DO Feb 02, 2017 14:52
[2017-02-02 15:00] VITALS: BP 180/80
[2017-02-02 19:00] VITALS: BP 178/73
[2017-02-02] MEDS: TAMSULOSIN 0.4 MG CAP.ER.24H. PO SCH (20:16)
[2017-02-02 23:00] VITALS: BP 167/83
[2017-02-03] MEDS: IV NORMAL SALINE 1000ML BAG 1,000 ML IV SCH (00:19)
[2017-02-03 03:00] VITALS: BP 160/89
[2017-02-03 04:51] LABS: BASO % 1 % (0-3); EOS % 3 % (0-3); HEMATOCRIT 31.1 % (39.0-53.0); HEMOGLOBIN 10.4 g/dL (13.0-17.5); LYMPH # 1.5 x10^3/uL (1.0-4.8); LYMPH % 21 % (24-48); MEAN CORPUSCULAR HEMOGLOBIN 29 pg (25-35); MEAN CORPUSCULAR HGB CONC 34 g/dL (31-37); MEAN CORPUSCULAR VOLUME 86 fL (79-100); MONO % 6 % (0-9); NEUT % 70 % (31-73); PLATELET COUNT 280 x10^3/uL (140-400); RED BLOOD COUNT 3.61 x10^6/uL (4.30-5.70); RED CELL DISTRIBUTION WIDTH 14.7 % (11.5-14.5); WHITE BLOOD COUNT 7.3 x10^3/uL (4.0-11.0)
[2017-02-03 05:20] LABS: ALBUMIN 2.5 g/dL (3.4-5.0); ALBUMIN/GLOBULIN RATIO 0.7 (1.0-1.7); CALCIUM 8.3 mg/dL (8.5-10.1); GFR 74.5; POTASSIUM 3.2 mmol/L (3.5-5.1); TOTAL BILIRUBIN 0.3 mg/dL (0.2-1.0); TOTAL PROTEIN 5.9 g/dL (6.4-8.2)
[2017-02-03] MEDS: LEVOFLOXACIN 500 MG TABLET PO SCH (06:24)
[2017-02-03 07:00] VITALS: BP 135/86
[2017-02-03] MEDS: LISINOPRIL 10 MG TABLET PO SCH (08:19)
[2017-02-03] MEDS: SENNOSIDES/DOCUSATE 8.6/50MG TABLET. PO SCH (08:20)
[2017-02-03] MEDS: AMLODIPINE BESYLATE 2.5 MG TABLET. PO SCH (08:20)
[2017-02-03 11:39] VITALS: BP 135/86
[2017-02-03] MEDS ORDERED: POTASSIUM CHLORIDE 20 MEQ TABLET.ER. PO ONE (13:15)
[2017-02-03] MEDS ORDERED: AMLO2.5T PO (13:20)
[2017-02-03] MEDS ORDERED: FINA5TAB PO (13:20)
[2017-02-03] MEDS ORDERED: CIPR500T94 PO (13:20)
--- NOTE | 2017-02-03 13:22 | PDOC ---
PROGRESS NOTES Chief Complaint Chief Complaint 1. Hemorrhagic prostatitis s/p Cystoscopy evacuation bladder clots 2. HTN, poor control 3. obesity 4. BPH 5. hypokalemia, History of Present Illness History of Present Illness feels well still try to DC if able to void haddad out cipro, proscar and flomax for DC hypokalemia, 40 PO x2 milk of mag, mild constipation Vitals Vitals Vital Signs Date Time Temp Pulse Resp B/P Pulse Ox O2 Delivery O2 Flow Rate FiO2 02/03/17 11:39 97.8 86 20 135/86 97 97.8 02/03/17 03:00 Room Air Physical Exam General: Alert, Oriented X3, Cooperative, No acute distress Heart: Regular rate, Normal S1, Normal S2, No murmurs Lungs: Clear Abdomen: Normal bowel sounds, Soft, No tenderness, No hepatosplenomegaly, No masses Extremities: No clubbing, No cyanosis, No edema, Normal pulses, No tenderness/ swelling Labs LABS Laboratory Tests Test 02/03/17 03:25 White Blood Count 7.3x10^3/uL (4.0-11.0) Red Blood Count 3.61x10^6/uL (4.30-5.70) Hemoglobin 10.4g/dL (13.0-17.5) Hematocrit 31.1% (39.0-53.0) Mean Corpuscular Volume 86fL (79-100) Mean Corpuscular Hemoglobin 29pg (25-35) Mean Corpuscular Hemoglobin Concent 34g/dL (31-37) Red Cell Distribution Width 14.7% (11.5-14.5) Platelet Count 280x10^3/uL (140-400) Neutrophils (%) (Auto) 70% (31-73) Lymphocytes (%) (Auto) 21% (24-48) Monocytes (%) (Auto) 6% (0-9) Eosinophils (%) (Auto) 3% (0-3) Basophils (%) (Auto) 1% (0-3) Neutrophils # (Auto) 5.1x10^3uL (1.8-7.7) Lymphocytes # (Auto) 1.5x10^3/uL (1.0-4.8) Monocytes # (Auto) 0.4x10^3/uL (0.0-1.1) Eosinophils # (Auto) 0.2x10^3/uL (0.0-0.7) Basophils # (Auto) 0.0x10^3/uL (0.0-0.2) Sodium Level 145mmol/L (136-145) Potassium Level 3.2mmol/L (3.5-5.1) Chloride Level 107mmol/L (98-107) Carbon Dioxide Level 29mmol/L (21-32) Anion Gap 9 (6-14) Blood Urea Nitrogen 9mg/dL (8-26) Creatinine 1.0mg/dL (0.7-1.3) Estimated GFR (Cockcroft-Gault) 74.5 BUN/Creatinine Ratio 9 (6-20) Glucose Level 102mg/dL (70-99) Calcium Level 8.3mg/dL (8.5-10.1) Total Bilirubin 0.3mg/dL (0.2-1.0) Aspartate Amino Transf (AST/SGOT) 24U/L (15-37) Alanine Aminotransferase (ALT/SGPT) 59U/L (16-63) Alkaline Phosphatase 68U/L (46-116) Total Protein 5.9g/dL (6.4-8.2) Albumin 2.5g/dL (3.4-5.0) Albumin/Globulin Ratio 0.7 (1.0-1.7) Assessment and Plan Assessmemt and Plan Problems Medical Problems: (1) Hematuria Status: Acute Problems: Comment Review of Relevant I have reviewed the following items allison (where applicable) has been applied. Labs Laboratory Tests Test 02/03/17 03:25 White Blood Count 7.3x10^3/uL (4.0-11.0) Red Blood Count 3.61x10^6/uL (4.30-5.70) Hemoglobin 10.4g/dL (13.0-17.5) Hematocrit 31.1% (39.0-53.0) Mean Corpuscular Volume 86fL (79-100) Mean Corpuscular Hemoglobin 29pg (25-35) Mean Corpuscular Hemoglobin Concent 34g/dL (31-37) Red Cell Distribution Width 14.7% (11.5-14.5) Platelet Count 280x10^3/uL (140-400) Neutrophils (%) (Auto) 70% (31-73) Lymphocytes (%) (Auto) 21% (24-48) Monocytes (%) (Auto) 6% (0-9) Eosinophils (%) (Auto) 3% (0-3) Basophils (%) (Auto) 1% (0-3) Neutrophils # (Auto) 5.1x10^3uL (1.8-7.7) Lymphocytes # (Auto) 1.5x10^3/uL (1.0-4.8) Monocytes # (Auto) 0.4x10^3/uL (0.0-1.1) Eosinophils # (Auto) 0.2x10^3/uL (0.0-0.7) Basophils # (Auto) 0.0x10^3/uL (0.0-0.2) Sodium Level 145mmol/L (136-145) Potassium Level 3.2mmol/L (3.5-5.1) Chloride Level 107mmol/L (98-107) Carbon Dioxide Level 29mmol/L (21-32) Anion Gap 9 (6-14) Blood Urea Nitrogen 9mg/dL (8-26) Creatinine 1.0mg/dL (0.7-1.3) Estimated GFR (Cockcroft-Gault) 74.5 BUN/Creatinine Ratio 9 (6-20) Glucose Level 102mg/dL (70-99) Calcium Level 8.3mg/dL (8.5-10.1) Total Bilirubin 0.3mg/dL (0.2-1.0) Aspartate Amino Transf (AST/SGOT) 24U/L (15-37) Alanine Aminotransferase (ALT/SGPT) 59U/L (16-63) Alkaline Phosphatase 68U/L (46-116) Total Protein 5.9g/dL (6.4-8.2) Albumin 2.5g/dL (3.4-5.0) Albumin/Globulin Ratio 0.7 (1.0-1.7) Laboratory Tests Test 02/03/17 03:25 White Blood Count 7.3x10^3/uL (4.0-11.0) Red Blood Count 3.61x10^6/uL (4.30-5.70) Hemoglobin 10.4g/dL (13.0-17.5) Hematocrit 31.1% (39.0-53.0) Mean Corpuscular Volume 86fL (79-100) Mean Corpuscular Hemoglobin 29pg (25-35) Mean Corpuscular Hemoglobin Concent 34g/dL (31-37) Red Cell Distribution Width 14.7% (11.5-14.5) Platelet Count 280x10^3/uL (140-400) Neutrophils (%) (Auto) 70% (31-73) Lymphocytes (%) (Auto) 21% (24-48) Monocytes (%) (Auto) 6% (0-9) Eosinophils (%) (Auto) 3% (0-3) Basophils (%) (Auto) 1% (0-3) Neutrophils # (Auto) 5.1x10^3uL (1.8-7.7) Lymphocytes # (Auto) 1.5x10^3/uL (1.0-4.8) Monocytes # (Auto) 0.4x10^3/uL (0.0-1.1) Eosinophils # (Auto) 0.2x10^3/uL (0.0-0.7) Basophils # (Auto) 0.0x10^3/uL (0.0-0.2) Sodium Level 145mmol/L (136-145) Potassium Level 3.2mmol/L (3.5-5.1) Chloride Level 107mmol/L (98-107) Carbon Dioxide Level 29mmol/L (21-32) Anion Gap 9 (6-14) Blood Urea Nitrogen 9mg/dL (8-26) Creatinine 1.0mg/dL (0.7-1.3) Estimated GFR (Cockcroft-Gault) 74.5 BUN/Creatinine Ratio 9 (6-20) Glucose Level 102mg/dL (70-99) Calcium Level 8.3mg/dL (8.5-10.1) Total Bilirubin 0.3mg/dL (0.2-1.0) Aspartate Amino Transf (AST/SGOT) 24U/L (15-37) Alanine Aminotransferase (ALT/SGPT) 59U/L (16-63) Alkaline Phosphatase 68U/L (46-116) Total Protein 5.9g/dL (6.4-8.2) Albumin 2.5g/dL (3.4-5.0) Albumin/Globulin Ratio 0.7 (1.0-1.7) Medications Current Medications Ondansetron HCl (Zofran) 4 mg PRN Q6HRS PRN IV NAUSEA/VOMITING; Start 01/31/17 at 07:00; Stop 02/01/17 at 06:59; Status DC Fentanyl Citrate (Fentanyl 2ml Vial) 25 mcg PRN Q5MIN PRN IV MILD PAIN; Start 01/31/17 at 07:00; Stop 02/01/17 at 06:59; Status DC Fentanyl Citrate (Fentanyl 2ml Vial) 50 mcg PRN Q5MIN PRN IV MODERATE PAIN; Start 01/31/17 at 07:00; Stop 02/01/17 at 06:59; Status DC Morphine Sulfate 1 mg 1 mg PRN Q10MIN PRN IV SEVERE PAIN; Start 01/31/17 at 07: 00; Stop 02/01/17 at 06:59; Status DC Lactated Ringer's (Iv Lactated Ringers) 1,000 ml @ 30 mls/hr Q24H IV ; Start at 07:00; Stop 01/31/17 at 18:59; Status DC Lidocaine HCl 2 ml PRN 1X PRN ID PRIOR TO IV START; Start 01/31/17 at 07:00; Stop 02/01/17 at 06:59; Status DC Hydromorphone HCl (Dilaudid) 0.5 mg PRN Q10MIN PRN IV SEV PAIN, Second choice; Start 01/31/17 at 07:00; Stop 02/01/17 at 06:59; Status DC Prochlorperazine Edisylate 5 mg 5 mg PACU PRN PRN IV NAUSEA, MRX1; Start at 07:00; Stop 02/01/17 at 06:59; Status DC Levofloxacin/ Dextrose (LEVAQUIN 500mg PREMIX) 100 ml @ 100 mls/hr 1X PREOP PRN IV PRIOR TO PROCEDURE Last administered on 01/31/17t 11:25; Start 01/31/17 at 06:00; Stop 01/31/17 at 18:00; Status DC Fentanyl Citrate (Fentanyl 2ml Vial) 100 mcg STK-MED ONCE .ROUTE ; Start at 10:29; Stop 01/31/17 at 10:30; Status DC Sevoflurane 30 ml 30 ml STK-MED ONCE IH ; Start 01/31/17 at 10:29; Stop at 10:30; Status DC Propofol (Diprivan) 20 ml @ As Directed STK-MED ONCE IV ; Start 01/31/17 at 10: 29; Stop 01/31/17 at 10:30; Status DC Lidocaine HCl 100 mg STK-MED ONCE .ROUTE ; Start 01/31/17 at 10:29; Stop at 10:30; Status DC Ondansetron HCl (Zofran) 4 mg STK-MED ONCE .ROUTE ; Start 01/31/17 at 10:29; Stop 01/31/17 at 10:30; Status DC Dexamethasone Sodium Phosphate (Decadron) 20 mg STK-MED ONCE .ROUTE ; Start at 10:29; Stop 01/31/17 at 10:30; Status DC Phenylephrine HCl 1 mg STK-MED ONCE IV ; Start 01/31/17 at 11:44; Stop 01/31/17 at 11:45; Status DC Al Hydroxide/Mg Hydroxide (Mylanta Plus Xs) 30 ml PRN Q3HRS PRN PO HEARTBURN / GAS; Start 01/31/17 at 12:30 Diphenhydramine HCl (Benadryl) 25 mg PRN Q6HRS PRN PO ITCHING; Start 01/31/17 at 12:30 Naloxone HCl (Narcan) 0.1 mg PRN Q2MIN PRN IV SEE COMMENTS; Start 01/31/17 at 12:30 Sodium Chloride 3 ml 3 ml QSHIFT PRN IV AFTER MEDS AND BLOOD DRAWS; Start 01/31 at 12:30 Sodium Chloride (Iv Sodium Chloride 0.9% 1000ml Bag) 1,000 ml @ 100 mls/hr Q10H IV Last administered on 02/03/17t 00:19; Start 01/31/17 at 13:30 Acetaminophen/ Hydrocodone Bitart (Lortab 5/325) 1 tab PRN Q4HRS PRN PO MILD PAIN; Start 01/31/17 at 12:30 Acetaminophen (Tylenol) 650 mg PRN Q6HRS PRN PO MILD PAIN / TEMP; Start at 12:30 Ondansetron HCl (Zofran) 4 mg PRN Q6HRS PRN IV NAUESA, 1ST CHOICE; Start at 12:30 Senna/Docusate Sodium (Senna Plus) 1 tab BID PO Last administered on 02/03/17 08:20; Start 01/31/17 at 21:00 Magnesium Hydroxide (Milk Of Magnesia) 2,400 mg PRN Q12HR PRN PO CONSTIPATION; Start 01/31/17 at 12:30 Levofloxacin (Levaquin) 500 mg DAILY06 PO ; Start 01/31/17 at 14:00; Stop at 14:00; Status DC Lisinopril (Prinivil) 10 mg DAILY PO Last administered on 02/03/17 08:19; Start 02/01/17 at 09:00 Tamsulosin HCl (Flomax) 0.4 mg QHS PO Last administered on 02/02/17 20:16; Start 01/31/17 at 21:00 Levofloxacin (Levaquin) 500 mg DAILY06 PO Last administered on 02/03/17 06:24 ; Start 02/01/17 at 06:00 Labetalol HCl (Normodyne) 10 mg PRN Q2HR PRN IVP HYPERTENSION, SEE COMMENTS Last administered on 02/02/17 20:17; Start 01/31/17 at 15:15 Amlodipine Besylate (Norvasc) 2.5 mg DAILY PO Last administered on 02/03/17 08 :20; Start 02/02/17 at 13:00 Potassium Chloride (Klor-Con) 20 meq 1X ONCE PO Last administered on 12:53; Start 02/02/17 at 13:00; Stop 02/02/17 at 13:01; Status DC Active Scripts Active Lisinopril 10 Mg Tablet 1 Tab PO DAILY Flomax (Tamsulosin Hcl) 0.4 Mg Cap.er.24h 0.4 Mg PO QHS Reported Aspirin 325 Mg Tablet 1 Tab PO PRN 1X PRN Vitals/I & O Vital Sign - Last 24 Hours 02/02/17 02/02/17 02/02/17 02/02/17 15:00 19:00 20:17 23:00 Temp 98.6 98.6 98.8 98.6 98.6 98.8 Pulse 95 92 92 98 Resp 16 20 20 B/P 180/80 178/73 178/73 167/83 Pulse Ox 95 97 97 O2 Delivery Room Air 02/03/17 02/03/17 02/03/17 02/03/17 03:00 07:00 08:19 08:20 Temp 98.9 97.8 98.9 97.8 Pulse 88 86 86 86 Resp B/P 160/89 135/86 135/86 135/86 Pulse Ox 98 97 O2 Delivery Room Air 02/03/17 11:39 Temp 97.8 97.8 Pulse 86 Resp B/P 135/86 Pulse Ox 97 Intake and Output 02/02/17 02/02/17 02/03/17 15:00 23:00 07:00 Intake Total 1780 ml 4280 ml 1500 ml Output Total 9400 ml 2750 ml Balance 1780 ml -5120 ml -1250 ml ESTELA VELARDE MD Feb 03, 2017 13:22
[2017-02-03] MEDS ORDERED: FINASTERIDE 5 MG TABLET. PO SCH (13:30)
[2017-02-03] MEDS ORDERED: MAGNESIUM SULFATE 2GM 50 ML IV ONE (13:30)
[2017-02-03] MEDS ORDERED: MAGNESIUM HYDROXIDE 2,400 MG/30 ML ORAL.SUSP. PO ONE (13:30)
[2017-02-03] MEDS ORDERED: LIDOCAINE 2% JELLY 6ML IN APPLICATOR. MM ONE ×2 (14:15→16:45)
[2017-02-03 14:35] VITALS: BP 168/89
[2017-02-03] MEDS ORDERED: TAMSULOSIN 0.4 MG CAP.ER.24H. PO SCH (21:00)
[2017-02-04] MEDS ORDERED: POTASSIUM CHLORIDE 20 MEQ TABLET.ER. PO SCH (08:00)
== END 2017-02-03 20:21 | disposition home health service (06) ==
LOC: SURG 09:32 → 5 SOUTH 13:03
PROVIDERS: ADMIT Urology; ATTEND Urology
DX: R31.0 Gross hematuria (principal); E66.9 Obesity, unspecified; E87.6 Hypokalemia; I10 Essential (primary) hypertension; K59.00 Constipation, unspecified; N32.89 Other specified disorders of bladder; N40.0 Benign prostatic hyperplasia without lower urinary tract symptoms; N41.9 Inflammatory disease of prostate, unspecified
CPT/HCPCS: 36415; 52000; 80048; 80053; 85027; 96374; 96376; G0378; G0379; J1100; J1956; J2370; J2405; J2704; J3010; J3490; J7030; J7120; J2001

== ENCOUNTER → 2017-07-03 | Outpatient (CLI) | payer MEDICARE ==
[~2017-07-03] MED LIST changes: +AMLO2.5T PO; -ASPI325T4 PO; +ASPI325T8 PO; +CIPR500T94 PO; -FENTANYL PF 100 MCG/2 ML VIAL. IV PRN; +FINA5TAB PO; -HYDROMORPHONE 2 MG/ML VIAL. IV PRN; -IV RINGERS,LACTATED 1000ML 1,000 ML IV SCH; -LIDOCAINE 1% 1 ML SYRINGE. ID PRN; -MORPHINE SULFATE 2 MG/ML DISP.SYRIN. IV PRN; -ONDANSETRON PF 4 MG/2 ML VIAL. IV PRN; -PROCHLORPERAZINE 10 MG/2 ML VIAL. IV PRN
--- NOTE | 2017-07-03 17:16 | KCIC ---
MRI of the brain without contrast 07/03/2017 Clinical History: Right leg weakness. Fall 3 weeks ago. Technique: Unenhanced T1-weighted sagittal and axial, T2-weighted axial and coronal and FLAIR, gradient echo and diffusion-weighted axial images of the brain were obtained. Findings: No previous imaging studies are available for comparison. There is generalized parenchymal atrophy. Patchy, confluent and multiple focal areas of increased signal intensity are seen within the periventricular and subcortical white matter of both cerebral hemispheres along with the mac on the FLAIR and T2-weighted images consistent with areas of fairly extensive small vessel ischemic disease. Several old areas of lacunar infarction are seen involving the left thalamus. These measure 4 to 5 mm in size. A 4 mm rounded area of decreased signal intensity is seen involving the left lenticular nucleus on the gradient echo images. There is no significant surrounding edema or associated mass effect. 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 An oval-shaped area of increased signal intensity is seen on the diffusion weighted images involving the lateral left thalamus. This measures 9 mm in greatest diameter. It demonstrates faint decreased signal intensity on ADC images. It is consistent with a relatively acute area of lacunar infarction. There is no significant surrounding edema or associated mass effect. No additional acute parenchymal abnormality is seen. No extra-axial fluid collection is noted. Mild mucosal thickening is seen scattered throughout the paranasal sinuses. A 1.5 cm mucous retention cyst is seen involving left maxillary sinus. There are minimal bilateral mastoid effusions Normal flow voids are seen within the major vascular structures surrounding the brain parenchyma. Impression: 9 mm area of relatively acute lacunar infarction is seen involving lateral aspect of the left thalamus. There is no significant surrounding edema or associated mass effect. Dr. Patiño's nurse was notified of this finding. Electronically signed by: Mo Martines MD (07/03/2017 5:13 PM) [id number]
== END | disposition home or self-care (01) ==
LOC: KCIC MRI 14:33
PROVIDERS: ATTEND Family Medicine
DX: I63.8 Other cerebral infarction (principal); J34.1 Cyst and mucocele of nose and nasal sinus; R53.1 Weakness
CPT/HCPCS: 70551